=== PATIENT | male | born 1955 | race African-American/Black ===

== ENCOUNTER 2017-10-09 14:49 | Emergency (ER) | payer OTHER, MEDICAID ==
[2017-10-09] MEDS: HYDROCODONE/APAP (10/325) TAB PO (16:50)
== END 2017-10-09 19:10 | disposition home or self-care (01) ==
LOC: FTE 14:49
DX: S33.9XXA Sprain of unspecified parts of lumbar spine and pelvis, initial encounter (principal); W18.39XA Other fall on same level, initial encounter; Y92.9 Unspecified place or not applicable
CPT/HCPCS: 72100; 73562; 73610; 99284-25